=== PATIENT | female | born 1945 | race Caucasian/White ===

== ENCOUNTER → 2016-12-21 | Outpatient (CLI) | payer MEDICARE, OTHER | LOC: GMAL 11:03 | PROVIDERS: ATTEND Family Medicine | DX: R53.83 Other fatigue (principal) ==

== ENCOUNTER → 2017-08-22 | Outpatient (CLI) | payer MEDICARE, OTHER | LOC: GMAL 10:38 | PROVIDERS: ATTEND Family Medicine | DX: D51.3 Other dietary vitamin B12 deficiency anemia (principal); E55.9 Vitamin D deficiency, unspecified ==

== ENCOUNTER → 2017-11-23 | Outpatient (CLI) | payer MEDICARE, OTHER ==
--- NOTE | 2017-11-27 13:49 | MAM ---
EXAM DESCRIPTION: 3D Screening BILATERAL : Digital Mammography. CLINICAL HISTORY: 72 years Female ANNUAL SCREENING . No complaints. Mother with breast cancer. Postmenopausal. Prior right breast biopsy. COMPARISON: diagnostic left breast mammography 10/08/2013. Bilateral 2-D digital screening mammography 09/16/2013.. No prior reports available. TECHNIQUE: Bilateral CC and MLO projection full-field images, 3-D tomosynthesis digital mammographic technique. Also bilateral synthesized CC/ MLO full-field images. CAD not utilized. FINDINGS: The breast parenchymal density pattern is: Scattered areas of fibroglandular density. No skin thickening or nipple retraction bilateral solitary microcalcifications. Bilateral axillary lymph nodes. Mass in the upper outer quadrant of the posterior third of the left breast on the prior study is no longer present and is presumed to have been excised at biopsy. No focal, stellate mass or density, focal asymmetry , and no suspicious microcalcifications bilaterally. Stable right breast mammograms compared to prior study, taking into account differences in mammographic technique IMPRESSION: BI-RADS CATEGORY: 2 - BENIGN FINDINGS. FOLLOW UP: Routine digital bilateral screening, one year interval from November 2017. Written communication explaining the IMPRESSION and follow-up, will be mailed to the patient and referring health care provider. According to the [employer], yearly mammograms are recommended starting at age 40 and continuing as long as a woman is in good health. Any breast change noted on a breast self-exam should be reported promptly to the patient's healthcare provider. Breast MRI is recommended for women with an approximately 20-25% or greater lifetime risk of breast cancer, including women with a strong family history of breast or ovarian cancer and women who have been treated for Hodgkin's disease. A negative mammographic report should not delay tissue diagnosis in patients with significant clinical history or physical findings. Extremely dense breast tissue limits the sensitivity of digital mammography. Electronically signed by: Son Lyon MD 11/27/2017 1:47 PM CDT
== END ==
LOC: RAD 11-22 09:31 → MAMMO 09:00
PROVIDERS: ATTEND Family Medicine
DX: Z12.31 Encounter for screening mammogram for malignant neoplasm of breast (principal)

== ENCOUNTER → 2018-05-22 | Outpatient (CLI) | payer MEDICARE, OTHER | LOC: GMAL 11:43 | PROVIDERS: ATTEND Family Medicine | DX: R53.83 Other fatigue (principal) ==

== ENCOUNTER → 2018-12-26 | Outpatient (CLI) | payer MEDICARE, OTHER | LOC: GMAL 10:24 | PROVIDERS: ATTEND Family Medicine | DX: D51.3 Other dietary vitamin B12 deficiency anemia (principal); E55.9 Vitamin D deficiency, unspecified; I10 Essential (primary) hypertension; E78.49 Other hyperlipidemia ==

== ENCOUNTER → 2019-07-03 | Outpatient (CLI) | payer MEDICARE ==
--- NOTE | 2019-07-08 13:57 | MAM ---
EXAM DESCRIPTION: 3D Screening BILATERAL : Digital Mammography. CLINICAL HISTORY: 74 years Female ANNUAL SCREENING . No complaints. No personal history of breast cancer. Mother with breast cancer age 70. Remote family history of breast cancer. Menarche age 15. Childbirth age 22. Postmenopausal age 50. No HRT. Lifetime risk of developing breast cancer (Tyrer-Cuzick model)(%): 8.6. COMPARISON: Bilateral screening digital breast tomosynthesis 23 Nov 2017.. MRI scan left shoulder on this visit. TECHNIQUE: Bilateral CC and MLO projection full-field images, digital tomosynthesis mammographic technique. Bilateral digital 2-D full-field MLO images. CAD not available for tomosynthesis or 2-D images. FINDINGS: The breast parenchymal density pattern is: Heterogeneously dense breast tissue, which may obscure small masses. No skin thickening or nipple retraction. Two Mole markers posterior upper left breast. Posterior group of microcalcifications posterior lateral left breast. No new focal, stellate mass or density, focal asymmetry , and no suspicious microcalcifications bilaterally. Stable mammograms compared to prior study. IMPRESSION: Benign exam. BIRAD CATEGORY: 2 BENIGN FINDINGS. RECOMMENDATIONS: FOLLOW UP: Routine digital bilateral mammographic screening, one year interval from June 2019. Written communication explaining the IMPRESSION and follow-up, will be mailed to the patient and referring health care provider. According to the [employer], yearly mammograms are recommended starting at age 40 and continuing as long as a woman is in good health. Any breast change noted on a breast self-exam should be reported promptly to the patient's healthcare provider. Breast MRI is recommended for women with an approximately 20-25% or greater lifetime risk of breast cancer, including women with a strong family history of breast or ovarian cancer and women who have been treated for Hodgkin's disease. A negative mammographic report should not delay tissue diagnosis in patients with significant clinical history or physical findings. Extremely dense breast tissue limits the sensitivity of digital mammography. Electronically signed by: Son Lyon MD 07/08/2019 1:55 PM TROUBLE TRACER
== END ==
LOC: MAMMO 11:06
PROVIDERS: ATTEND Family Medicine
DX: Z12.31 Encounter for screening mammogram for malignant neoplasm of breast (principal)

== ENCOUNTER → 2019-07-08 | Outpatient (CLI) | payer OTHER ==
--- NOTE | 2019-07-08 14:56 | MRI ---
Study: MRI of the Left Shoulder. Indication: SHOULDER PAIN Technique: Multiplanar, multi sequence MRI of the left shoulder was obtained without intravenous contrast. Comparison: None. Findings: Moderate AC joint osteoarthritis. Type II acromion with moderate lateral downsloping. Trace subacromial/subdeltoid bursal fluid. High-grade supraspinatus and infraspinatus tendinosis with irregular scattered low to intermediate grade interstitial tearing throughout both tendon insertions and the critical zones. Areas of particular bursal extension present and most pronounced at the critical zone conjoined tendon. No full-thickness rupture. Subscapularis tendinosis with low-grade interstitial tearing superiorly. Minimal atrophy and grade 1 fatty infiltration rotator cuff musculature. High-grade long head biceps tendinosis without transection. Circumferential labral truncation/degeneration. Mild to moderate glenohumeral joint osteoarthritis with small joint effusion. No acute fracture. Impression: High-grade supraspinatus and infraspinatus tendinosis with irregular low to intermediate grade interstitial tearing of both tendons. Areas of articular and bursal surface extension likely present. No complete rupture or tendon retraction. Subscapularis tendinosis with low-grade interstitial tearing superiorly. Minimal atrophy and grade 1 fatty infiltration rotator cuff musculature. High-grade long head biceps tendinosis. Circumferential labral truncation and degeneration. Mild to moderate glenohumeral joint osteoarthritis with a small joint effusion. Moderate AC joint osteoarthritis. Electronically signed by: Grayson Hargrove MD 07/08/2019 2:55 PM COMPO CONVEYOR OPERATOR
== END ==
LOC: MRI 08:54
PROVIDERS: ATTEND Family Medicine
DX: S46.012A Strain of muscle(s) and tendon(s) of the rotator cuff of left shoulder, initial encounter (principal); M75.82 Other shoulder lesions, left shoulder; M62.512 Muscle wasting and atrophy, not elsewhere classified, left shoulder; M19.012 Primary osteoarthritis, left shoulder; M75.22 Bicipital tendinitis, left shoulder

== ENCOUNTER → 2020-03-17 | Outpatient (CLI) | payer MEDICARE | END | disposition home or self-care (01) | LOC: GMAL 14:27 | PROVIDERS: ATTEND Family Medicine | DX: D63.8 Anemia in other chronic diseases classified elsewhere (principal); E53.8 Deficiency of other specified B group vitamins; R53.83 Other fatigue ==

== ENCOUNTER 2020-06-04 05:22 | Day surgery (SDC) | payer MEDICARE ==
[2020-06-04] MEDS ORDERED: LACTATED RINGERS 1,000 ML ONE (06:30)
[2020-06-04] MEDS ORDERED: LIDOCAINE 1% 10 ML VIAL INJ ONE (07:00)
[2020-06-04] MEDS ORDERED: PROPOFOL 200 MG/20 ML VIAL IV ONE (07:00)
--- NOTE | 2020-06-04 09:56 | OP ---
DATE OF PROCEDURE: 06/04/20 PREOPERATIVE DIAGNOSIS: 1. Screening colonoscopy. POSTOPERATIVE DIAGNOSIS: 1. Multiple colonic polyps. PROCEDURE: 1. Colonoscopy with polypectomy. SURGEON: Kael Mondragon MD ANESTHESIA: General. FINDINGS: There was a moderately large cecal polyp, approximately 3 to 4 mm. We could not get it out with a snare, so it was taken out with the forceps. All that we could see was removed, but this needs to be examined in a short interim. There is transverse colon small polyp. There was a polyp at 20 cm x2 taken with forceps. Another polyp at 15 cm. This was a little larger at 2.5 mm, but it was taken with forceps. At 10 cm, there were a few small hyperplastic looking polyps that were removed. PROCEDURE: General anesthesia was induced in the lateral position. Digital rectal exam was normal. The colonoscope was introduced. We identified what appeared to be a few hyperplastic polyps initially. We continued on and with moderate difficulty got to the cecum identified by the ileocecal valve and appendiceal orifice. Once we got in the final fold in the cecum, we identified a polyp. It was at least 3 to 4 mm. It was not on a stalk. It was just behind a fold and amenable to snare excision and not going to elevate and burn in this area of the cecum. We took it with a forceps. We systematically went from one side all the way to the other. It appeared that the entire thing was removed, however, it should get close followup. Upon withdrawal, the other polyps were seen as mentioned above. Otherwise, the mucosal surfaces appeared normal. No other significant polyps were identified but the ones in the findings. The patient tolerated the procedure. The gas was aspirated on the way out. She was taken to Recovery to be discharged and followup for results. #[id number] [facility]
[2020-06-04 09:57] VITALS: BP 111/85; TEMP 97.3; O2SAT 99
== END 2020-06-04 09:53 | disposition home or self-care (01) ==
LOC: AMB 05:22
PROVIDERS: ATTEND Surgery
DX: Z12.11 Encounter for screening for malignant neoplasm of colon (principal); D12.0 Benign neoplasm of cecum; K63.5 Polyp of colon; I10 Essential (primary) hypertension; K21.9 Gastro-esophageal reflux disease without esophagitis; E78.00 Pure hypercholesterolemia, unspecified; Z88.5 Allergy status to narcotic agent; Z88.1 Allergy status to other antibiotic agents; Z88.8 Allergy status to other drugs, medicaments and biological substances; Z79.899 Other long term (current) drug therapy
CPT/HCPCS: 00812; 45380; 45385; J3490; J7120

== ENCOUNTER → 2020-06-24 | Outpatient (CLI) | payer MEDICARE | LOC: GMAL 10:22 | PROVIDERS: ATTEND Family Medicine | DX: D51.3 Other dietary vitamin B12 deficiency anemia (principal); E55.9 Vitamin D deficiency, unspecified; I10 Essential (primary) hypertension; N18.9 Chronic kidney disease, unspecified; D63.8 Anemia in other chronic diseases classified elsewhere ==

== ENCOUNTER 2020-07-20 06:53 | Emergency (ER) | payer MEDICARE ==
--- NOTE | 2020-07-20 08:14 | RAD ---
EXAM DESCRIPTION: Chest,1 View CLINICAL HISTORY: 75 years Female, reported bradycardia COMPARISON: 06/23/2015 Findings: One view(s)/radiograph(s) Cardiac silhouette and pulmonary vasculature are within normal limits. No pneumothorax. No pleural effusion. Left perihilar and bilateral upper lobe patchy airspace disease. No acute osseous abnormality. IMPRESSION: Patchy multifocal bilateral airspace disease; pulmonary edema or pneumonia. Electronically signed by: Adrian Gustafson MD 07/20/2020 8:12 AM LYE MACHINE OPERATOR
[2020-07-20] MEDS ORDERED: SODIUM CHLORIDE 0.9% 1000ML 1,000 ML IVS ONE (10:30)
[2020-07-20 11:36] VITALS: O2SAT 98
--- NOTE | 2020-07-20 11:52 | CT ---
EXAM DESCRIPTION: CTA Chest CLINICAL HISTORY: 75 years, Female, d-dimer, transient hypotension COMPARISON: None TECHNIQUE: Rapid bolus administration of nonionicIV contrast was performed with thin-section axial scanning of the chest performed in a dynamic fashion. Reconstructed multiplanar and three dimensional MIP and/or VRT images were created on a separate dedicated workstation were reviewed along with the source axial images and stored in the patient's medical record. Stenoses were evaluated using the NASCET criteria. This exam was performed according to our departmental dose-optimization program, which includes automated exposure control, adjustment of the mA and/or kV according to patient size and/or use of iterative reconstruction technique. FINDINGS: Both lungs are adequately expanded with mild scarring or linear atelectasis in each posterior and posterior lateral lung base. Moderate retrocardiac hiatal hernia is noted. Mild subpleural fibrotic lung disease is present in the remainder of the chest without dense consolidation or layering pleural effusion. In the peripheral left upper lobe anterolaterally a noncalcified 5 mm pulmonary nodule subpleural in location is present. Additional pulmonary masses or nodules not apparent. CT pulmonary angiography demonstrates no filling defects or evidence of pulmonary embolus. Normal cardiac silhouette is present. Supraclavicular and thoracic inlet region is normal. No abnormality of the thyroid noted. Superior middle mediastinum and hilar regions demonstrate no mass or adenopathy. Below the diaphragm no specific abnormality noted. Kyphosis of the dorsal spine with moderate degenerative change without focal severe compression deformity noted. Mild motion artifact noted in multiple locations predominantly involving the sternum. IMPRESSION: 1. Negative CT pulmonary angiogram for pulmonary embolus. 2. Mild fibrotic and interstitial lung disease with linear scarring or platelike atelectasis at each posterior lung base. 3. 5 mm noncalcified subpleural nodule left upper lobe anterolaterally. Per the 2017 Fleischner Society recommendations, no follow-up recommended in a low risk patient and consider [address] follow-up in a high risk patient. 4. Moderate retrocardiac hiatal hernia. 5. Advanced kyphosis and moderate degenerative changes dorsal spine without severe compression deformity. Electronically signed by: Kwesi Cote MD 07/20/2020 11:50 AM CONFIGURATION MANAGER
[2020-07-20] MEDS ORDERED: predniSONE 20 MG TAB PO ONE (12:00)
[2020-07-20] MEDS ORDERED: APIXABAN 5 MG TAB PO ONE (12:00)
--- NOTE | 2020-07-20 12:04 | ED.PDOC ---
History of Present Illness - General Chief Complaint: Blood Pressure Problem Stated Complaint: low heart rate, low blood pressure Time Seen by Provider: 07/20/20 06:56 Source: patient Exam Limitations: no limitations - History of Present Illness Initial Comments: The patient is a 75-year-old female presented emergency room secondary to having an episode of about 5 to 10 minutes duration this morning of feeling dizzy and weak. When she checked her blood pressure and pulse, her pulse was down in the 30s and her systolic blood pressure was down in the 70s. By the t [facility] arrived they were back to normal. No chest pain. Mild shortness of breath. No loss of consciousness. She reports one similar episode 4 or 5 years ago. No obvious source was found at that time. She is asymptomatic currently. No shortness of breath. No known recent illness. Timing/Duration: other - 5 to 10 minutes Severity: moderate Improving Factors: nothing Worsening Factors: nothing Associated Symptoms: denies symptoms Allergies/Adverse Reactions: Allergies Amoxicillin [From Augmentin] Allergy (Verified 07/20/20 07:22) Belladonna Allergy (Verified 07/20/20 07:22) Clavulanic Acid [From Augmentin] Allergy (Verified 07/20/20 07:22) Codeine Allergy (Verified 07/20/20 07:22) Tetracycline Allergy (Verified 07/20/20 07:22) Home Medications: Ambulatory Orders Cetirizine HCl [Zyrtec] 10 mg PO PRN PRN 11/24/14 Lisinopril 20 mg PO DAILY 11/24/14 Pravastatin Sodium 40 mg PO BEDTIME 11/24/14 Omeprazole Magnesium [Prilosec Otc] 20 mg PO DAILY 07/02/15 Amlodipine Besylate 5 mg PO BEDTIME 06/02/20 Ascorbic Acid [Vitamin C] 500 mg PO NOON 06/02/20 Calcium-Magnesium W/ Vitamin D [Calcium 600/Magnesium 300] 1 cap PO NOON 06/02/20 Coenzyme Q10 (Ubidecarenone) [Coq-10] 100 mg PO NOON 06/02/20 Metoprolol Tartrate 50 mg PO BID 06/02/20 Multiple Vitamins W/ Minerals [Multivitamin] 1 tab PO NOON 06/02/20 diphenhydrAMINE HCL [Benadryl] 25 mg PO PRN PRN 06/02/20 Apixaban [Eliquis] 5 mg PO BID #30 tab 07/20/20 predniSONE [Prednisone] 20 mg PO DAILY #5 tab 07/20/20 Review of Systems - Review of Systems Constitutional: States: no symptoms reported EENTM: States: no symptoms reported Respiratory: States: no symptoms reported Cardiology: States: no symptoms reported Gastrointestinal/Abdominal: States: no symptoms reported Genitourinary: States: no symptoms reported Musculoskeletal: States: no symptoms reported Skin: States: no symptoms reported Neurological: States: no symptoms reported Endocrine: States: no symptoms reported All other Systems: No Change from Baseline Past Medical History (General) - Patient Medical History Hx Seizures: No Hx Stroke: No Hx Dementia: No Hx Asthma: No Hx of COPD: No Hx Cardiac Disorders: No Hx Congestive Heart Failure: No Hx Pacemaker: No Hx Hypertension: Yes Hx Thyroid Disease: No Hx Diabetes: No Hx Gastroesophageal Reflux: No Hx Renal Disease: No Hx Cancer: No Hx of HIV: No Hx Hepatitis C: No Hx MRSA: No Surgical History: tonsillectomy - Vaccination History Hx Influenza Vaccination: Yes Hx Pneumococcal Vaccination: Yes - Social History Hx Tobacco Use: Yes Hx Alcohol Use: No Hx Substance Use: No Hx Physical Abuse: No Hx Emotional Abuse: No - Female History Patient is a Female of Child Bearing Age (10 -59 yrs old): No Patient : No Family Medical History - Family History Mother Family History: No Known Living Status: Hx Family Cancer: Yes Physical Exam - Physical Exam General Appearance: Alert, Comfortable, No apparent distress Eye Exam: bilateral normal Ears, Nose, Throat: hearing grossly normal, normal pharynx Neck: full range of motion, supple Respiratory: lungs clear, normal breath sounds, no respiratory distress, no accessory muscle use Cardiovascular/Chest: normal peripheral pulses, regular rate, rhythm, no edema Peripheral Pulses: radial,right: 2+, radial,left: 2+ Gastrointestinal/Abdominal: non tender, soft Rectal Exam: deferred Back Exam: no CVA tenderness, no vertebral tenderness Extremity: non-tender, normal inspection, no pedal edema, no calf tenderness, normal capillary refill, other - No palpable cords. Neurologic: dance artist II-XII nml as tested, alert, normal mood/affect, oriented x 3 Skin Exam: normal color Comments: Vital Signs - 24 hr 07/20/20 07/20/20 07/20/20 06:55 07:20 07:55 Temperature 96.7 F L Pulse Rate 75 Pulse Rate [ 75 76 67 brachial] Respiratory 16 18 20 Rate Blood Pressure 163/72 139/69 126/59 [Left Arm] O2 Sat by Pulse 99 98 94 L Oximetry 07/20/20 07/20/20 07/20/20 09:00 09:55 10:00 Temperature 96.9 F L Pulse Rate 72 Pulse Rate [ 72 72 72 brachial] Respiratory 14 16 18 Rate Blood Pressure 124/64 114/84 132/63 [Left Arm] O2 Sat by Pulse 97 98 96 Oximetry 07/20/20 11:00 Temperature 97.1 F L Pulse Rate 74 Pulse Rate [ 74 brachial] Respiratory 18 Rate Blood Pressure 130/65 [Left Arm] O2 Sat by Pulse 98 Oximetry Progress - Progress Progress: 07/20/20 12:04 The patient is a 75-year-old female presented emergency room secondary to transient bradycardia and hypotension which has not been redemonstrated here. Source of this is uncertain. She appears to have one similar episode 4 or 5 years ago according to her. This may be a vagal response to something. It is uncertain. I am recommending that she see her primary care doctor to get set up with a outpatient telemetry of some form. 2 sets of cardiac enzymes were negative. The patient tested negative for coronavirus here today however she did have a markedly elevated D-dimer. CT angiogram of the chest shows no evidence of any pulmonary embolus. It is possible she may have had the coronavirus a week or 2 ago and be exhibiting some coagulopathy currently. For this reason she is going to be put on 2 weeks of low-dose Eliquis. Additionally I am going to put her on 5 days of oral prednisone. I do believe that it would be worthwhile for her to have blood work redrawn in a few weeks to check for the coronavirus antibody as well as to repeat a D-dimer on the patient. Patient does have a very small 5 mm pulmonary nodule that will require follow-up CT scan in 4 to 6 months for long-term monitoring. The patient is doing well at this time. Laboratory work and EKG as well as other imaging were reassuring. ER warnings are given. elias rolle [id number] - Results/Orders Results/Orders: 07/20/20 07:07 Vital Signs-Tilt PRN 07/20/20 07:15 EKG STAT EKG shows normal sinus rhythm at 68 bpm. Normal R wave progression. Normal axis. Normal QT interval. No ST segment or T wave changes indicative of acute ischemia. Single view chest x-ray shows possibility of scattered upper lobe infiltrates. This is not shown on the CT scan. CT angiogram of the chest done due to elevated D-dimer as well as transient hypotension and bradycardia showed no evidence of any pulmonary embolus. She does have mild chronic scarring. There is a small left upper lobe 5 mm pulmonary nodule which needs outpatient follow-up exam in around 4 to 6 months. No significant infiltrates. Laboratory Results - last 24 hr 07/20/20 07/20/20 07/20/20 07:05 07:30 07:30 WBC RBC Hgb Hct MCV MCH MCHC RDW Plt Count MPV Absolute Neuts (auto) Absolute Lymphs (auto) Absolute Monos (auto) Absolute Eos (auto) Absolute Basos (auto) Neutrophils % Lymphocytes % Monocytes % Eosinophils % Basophils % PT INR PTT (SP) D-Dimer, Quantitative Sodium 138 Potassium 3.9 Chloride 106 Carbon Dioxide 22 Anion Gap 13.9 BUN 25 H Creatinine 1.12 BUN/Creatinine Ratio 22.3 H Random Glucose 108 H Serum Osmolality 280.6 Calcium 8.8 Magnesium 2.1 Total Bilirubin 0.5 AST 25 ALT 20 Alkaline Phosphatase 87 Creatine Kinase 62 CK-MB (CK-2) 1.6 CK-MB (CK-2) % Not Reportable Troponin I < 0.02 B-Natriuretic Peptide 179.0 H Serum Total Protein 6.9 Albumin 3.6 Globulin 3.3 Albumin/Globulin Ratio 1.1 TSH 1.49 Urine Color Yellow Urine Appearance Clear Urine pH 7.0 Ur Specific Sophia 1.020 Urine Protein Negative Urine Glucose (UA) Negative Urine Ketones Negative Urine Blood Negative Urine Nitrite Negative Urine Bilirubin Negative Urine Urobilinogen 0.2 Ur Leukocyte Esterase Negative Urine RBC 0-1 Urine WBC 1-3 Ur Epithelial Cells 5-10 Urine Bacteria 1+ 07/20/20 07/20/20 07/20/20 07:30 07:30 09:55 WBC 6.3 RBC 3.79 L Hgb 11.5 L Hct 34.1 L MCV 90.1 MCH 30.4 MCHC 33.8 RDW 13.8 Plt Count 206 MPV 10.5 H Absolute Neuts (auto) 4.00 Absolute Lymphs (auto) 1.30 Absolute Monos (auto) 0.60 Absolute Eos (auto) 0.30 Absolute Basos (auto) 0.10 Neutrophils % 64.0 Lymphocytes % 19.9 L Monocytes % 10.2 H Eosinophils % 4.8 Basophils % 1.1 PT 9.3 INR < 1.00 PTT (SP) 23.4 D-Dimer, Quantitative Sodium Potassium Chloride Carbon Dioxide Anion Gap BUN Creatinine BUN/Creatinine Ratio Random Glucose Serum Osmolality Calcium Magnesium Total Bilirubin AST ALT Alkaline Phosphatase Creatine Kinase 58 CK-MB (CK-2) 1.6 CK-MB (CK-2) % Not Reportable Troponin I < 0.02 B-Natriuretic Peptide Serum Total Protein Albumin Globulin Albumin/Globulin Ratio TSH Urine Color Urine Appearance Urine pH Ur Specific Sophia Urine Protein Urine Glucose (UA) Urine Ketones Urine Blood Urine Nitrite Urine Bilirubin Urine Urobilinogen Ur Leukocyte Esterase Urine RBC Urine WBC Ur Epithelial Cells Urine Bacteria 07/20/20 07/20/20 09:55 09:55 WBC RBC Hgb 11.7 L Hct 34.7 L MCV MCH MCHC RDW Plt Count MPV Absolute Neuts (auto) Absolute Lymphs (auto) Absolute Monos (auto) Absolute Eos (auto) Absolute Basos (auto) Neutrophils % Lymphocytes % Monocytes % Eosinophils % Basophils % PT INR PTT (SP) D-Dimer, Quantitative 1500.0 H* Sodium Potassium Chloride Carbon Dioxide Anion Gap BUN Creatinine BUN/Creatinine Ratio Random Glucose Serum Osmolality Calcium Magnesium Total Bilirubin AST ALT Alkaline Phosphatase Creatine Kinase CK-MB (CK-2) CK-MB (CK-2) % Troponin I B-Natriuretic Peptide Serum Total Protein Albumin Globulin Albumin/Globulin Ratio TSH Urine Color Urine Appearance Urine pH Ur Specific Sophia Urine Protein Urine Glucose (UA) Urine Ketones Urine Blood Urine Nitrite Urine Bilirubin Urine Urobilinogen Ur Leukocyte Esterase Urine RBC Urine WBC Ur Epithelial Cells Urine Bacteria Rapid coronavirus test is negative. - EKG/XRAY/CT CT Ordered: No CT Interpretation Call Back: No Departure - Departure Clinical Impression: Bradycardia with 31-40 beats per minute, D-dimer, elevated Hypotension Qualifiers: Hypotension type: unspecified hypotension type Qualified Code(s): I95.9 - Hypotension, unspecified Disposition: Discharge to Home or Self Care Condition: Fair Departure Forms: ED Discharge - Pt. Copy, Patient Portal Self Enrollment Diet: regular diet Activity: increase activity as tolerated Referrals: Hayden Case III, MD [Primary Care Provider] - 1-2 Weeks Prescriptions: Apixaban [Eliquis] 5 mg PO BID #30 tab predniSONE [Prednisone] 20 mg PO DAILY #5 tab Home Medications: Ambulatory Orders Cetirizine HCl [Zyrtec] 10 mg PO PRN PRN 11/24/14 Lisinopril 20 mg PO DAILY 11/24/14 Pravastatin Sodium 40 mg PO BEDTIME 11/24/14 Omeprazole Magnesium [Prilosec Otc] 20 mg PO DAILY 07/02/15 Amlodipine Besylate 5 mg PO BEDTIME 06/02/20 Ascorbic Acid [Vitamin C] 500 mg PO NOON 06/02/20 Calcium-Magnesium W/ Vitamin D [Calcium 600/Magnesium 300] 1 cap PO NOON 06/02/20 Coenzyme Q10 (Ubidecarenone) [Coq-10] 100 mg PO NOON 06/02/20 Metoprolol Tartrate 50 mg PO BID 06/02/20 Multiple Vitamins W/ Minerals [Multivitamin] 1 tab PO NOON 06/02/20 diphenhydrAMINE HCL [Benadryl] 25 mg PO PRN PRN 06/02/20 Apixaban [Eliquis] 5 mg PO BID #30 tab 07/20/20 predniSONE [Prednisone] 20 mg PO DAILY #5 tab 07/20/20 Additional Instructions: The patient is a 75-year-old female presented emergency room secondary to transient bradycardia and hypotension which has not been redemonstrated here. Source of this is uncertain. She appears to have one similar episode 4 or 5 years ago according to her. This may be a vagal response to something. It is uncertain. I am recommending that she see her primary care doctor to get set up with a outpatient telemetry of some form. 2 sets of cardiac enzymes were negative. The patient tested negative for coronavirus here today however she did have a markedly elevated D-dimer. CT angiogram of the chest shows no evidence of any pulmonary embolus. It is possible she may have had the coron avirus a week or 2 ago and be exhibiting some coagulopathy currently. For this reason she is going to be put on 2 weeks of low-dose Eliquis. Additionally I am going to put her on 5 days of oral prednisone. I do believe that it would be worthwhile for her to have blood work redrawn in a few weeks to check for the coronavirus antibody as well as to repeat a D-dimer on the patient. Patient does have a very small 5 mm pulmonary nodule that will require follow-up CT scan in 4 to 6 months for long-term monitoring. The patient is doing well at this time. Laboratory work and EKG as well as other imaging were reassuring. ER warnings are given.
[2020-07-20 12:43] VITALS: BP 130/67; TEMP 98.2
== END 2020-07-20 12:37 | disposition home or self-care (01) ==
LOC: ER 06:53
DX: I95.9 Hypotension, unspecified (principal); R00.1 Bradycardia, unspecified; I10 Essential (primary) hypertension; Z20.828 Contact with and (suspected) exposure to other viral communicable diseases; Z87.891 Personal history of nicotine dependence; Z79.899 Other long term (current) drug therapy; Z88.1 Allergy status to other antibiotic agents; Z88.8 Allergy status to other drugs, medicaments and biological substances; Z88.5 Allergy status to narcotic agent; Z88.3 Allergy status to other anti-infective agents
CPT/HCPCS: 36415; 71045; 71275; 80053; 81001; 82550; 82553; 83735; 83880; 84443; 84484; 85014; 85018; 85025; 85379; 85610; 85730; 87635; 93005; J7030; J7512